=== PATIENT | male | born 1955 | race Caucasian/White ===

== ENCOUNTER 2024-06-22 09:14 | Emergency (ER) | payer MEDICARE, SELFPAY ==
--- NOTE | 2024-06-22 09:17 | XR_ITS ---
PROCEDURE INFORMATION: Exam: XR Left Wrist Exam date and time: 06/22/2024 9:17 AM Age: 68 years old Clinical indication: Injury or trauma; Fall; Blunt trauma (contusions or hematomas); Wrist; Left; Additional info: Fall yesterday, swelling and limited range of motion TECHNIQUE: Imaging protocol: Radiologic exam of the left wrist. Views: 3 or more views. COMPARISON: No relevant prior studies available. FINDINGS: Bones/joints: Radiocarpal relationship is maintained. There has an acute nondisplaced fracture of the distal metaphysis of the radius. Soft tissues: There is soft tissue swelling. IMPRESSION: Acute nondisplaced fracture of the distal metaphysis of the left radius.
[2024-06-22 09:55] VITALS: BP 150/90; PULSE 83; RESP 19; TEMP 36.8; O2SAT 98; BMI 24.0
--- NOTE | 2024-06-22 10:15 | ED_ITS ---
Discharge Plan Prescriptions Prescriptions: No Action polyethylene glycol 3350 [Miralax] 17 GM Powd.Pack 4 g PO DAILY iron, carbonyl [Iron Chews] 15 MG Tab.Chew 45 mg PO DAILY dextromethorphan-guaifenesin [Mucinex DM] 1 EACH Tab.Er.12h 0.5 tab PO BID montelukast 10 MG Tablet 10 mg PO PM ibuprofen-diphenhydramine cit [Advil PM] 1 EACH Tablet 0.5 ea PO HS omeprazole 20 MG Tablet.Dr 20 mg PO DAILY [id number] [Mens Multivitamin High Potency] 1 EACH Tablet 1 ea PO DAILY ascorbic acid (vitamin C) 500 MG Capsule 500 mg PO BID piau-cjw-obi-aen-vwup-pnwz-pec [Fiber 6] 1,000 MG Tablet 1,000 mg PO BID Referrals Follow up/Referrals: Praveen Olivo MD [Primary Care Provider] - See instructions Activity Restrictions/Add. Instructions Additional Instructions/Restrictions: rest Ice with cold pack for 20 minutes remove may repeat for comfort every hour splint for support and swelling.Be sure not too tight but not to lose either Elevate with arm above your heart as much as possible to help reduce swelling and therefore pain Ibuprofen every 6 hours as needed for pain or inflammation. Tylenol every 4 hours as needed Follow-up immediately if new or worsening symptoms or no noticeable improvement over the next 3-5 days. call ortho on Sunday for an appointment Dr. Olguin [phone] [facility] orthopedics [phone] Clinical Impressions Clinical Impression: Closed left radial fracture Instructions Patient Instructions: DI for Forearm Fracture Print Language Print Language: Micronesian Discharge ED Provider: Mandy ([facility])Kiersten [facility] [place] General Stated complaint: a/o 12/8, L wrist pain Mode of Arrival: Ambulatory Source of Information: Patient Limitations: No Limitations Time Seen by Provider: 06/22/24 10:15 Description of Symptoms (Recalled from Triage Doc. by RN): YURIY C/O LEFT WRIST INJURY AFTER FALLING YESTERDAY HEENT Symptoms (Recalled from RN notes): No Resp Symptoms (Recalled from RN notes): No Skin Symptoms (Recalled from RN notes): No MS Symptoms (Recalled from RN notes): Yes Functional Status (Recalled from RN notes): WNL History of Present Illness Provider Complaint: 68-year-old male presents for left wrist pain after falling yesterday. Related Data Home Medications ?Medication ?Instructions ?Recorded ?Confirmed ascorbic acid (vitamin C) 500 mg 500 mg PO BID Supplement 09/09/18 09/16/18 capsule pqqa-ziz-ckmzo-wkdesvwgr-cvrtwrii-amfa-pectin 1,000 mg PO BID Supplement 09/09/18 09/16/18 1,000 mg tablet (Fiber 6) dextromethorphan-guaifenesin ER 60 0.5 tab PO BID Cough/cold 09/09/18 09/16/18 mg-1,200 mg tab,extend release,12hr (Mucinex DM) ibuprofen-diphenhydramine citrate 0.5 ea PO HS sleep 09/09/18 09/16/18 200 mg-38 mg tablet (Advil PM) iron, carbonyl 15 mg chewable 45 mg PO DAILY Supplement 09/09/18 09/16/18 tablet (Iron Chews) montelukast 10 mg tablet 10 mg PO PM Breathing problems 09/09/18 09/16/18 jzemjznc-fcp-ikyfc 200 mcg-lycop 1 ea PO DAILY Supplement 09/09/18 09/16/18 175 mcg-lutei 250 mcg-herb 178 tablet (Mens Multivitamin High Potency) omeprazole 20 mg tablet,delayed 20 mg PO DAILY stomach 09/09/18 09/16/18 release polyethylene glycol 3350 17 gram 4 g PO DAILY Supplement 09/09/18 09/16/18 oral powder packet (Miralax) Allergies Allergy/AdvReac Type Severity Reaction Status Date / Time codeine Allergy Unknown Verified 06/22/24 10:06 allergy reaction hydrocodone Allergy Unknown Verified 06/22/24 10:06 allergy reaction horse serum Allergy Unknown Uncoded 06/22/24 10:06 allergy reaction Worker's Comp Is this a Worker's Comp case?: No [facility] Disclaimer: The information contained in this section may have been updated after the patient was seen, as this information can be updated by other users. Social History , [employer]) Smoking Status: Never smoker alcohol intake: never current occupational status: retired Travel in the last 8 weeks: None caffeine: No ROS Obtained: Yes Systems reviewed as appropriate & no additional complaints except as documented Physical Exam General General appearance: alert and in no apparent distress ENT ENT exam: Present normal exam Neck Neck exam: Present normal inspection and full ROM Chest Chest inspection: Present normal inspection Respiratory Respiratory exam: Present normal lung sounds bilaterally Cardiovascular Cardiovascular exam: Present regular rate and normal rhythm Expanded Upper Extremity Exam Left: Forearm/Wrist exam: Present tenderness, swelling and ecchymosis L/R Arms Top View: 2 1. Tenderness, bruising, swelling Neurological Exam Neurological exam: Present alert, oriented X3 and CN II-XII intact Skin Skin exam: Present warm and intact Lymphatic Lymphatic Findings: no adenopathy Medical Decision Making Medical Records Medical records reviewed: Yes I reviewed the patient's medical records. Screening: Per USPSTF and CDC recommendations, given the prevalence of disease in our region, it is our hospital?s policy to screen for HIV and viral Hepatitis for all patients aged 18 and over and those with ongoing risk factors. Douglas Inquiry Pt receiving controlled substance: No Douglas was queried for this patient: No Vital Signs: 06/22/24 09:55 Temperature 98.3 F Temperature Source Oral Pulse Rate [Left Brachial] 83 Respiratory Rate 19 Blood Pressure [Left Arm] 150/90 H Blood Pressure Mean [Left Arm] 110 Blood Pressure Source [Left Arm] Automatic Cuff Blood Pressure Position [Left Arm] Sitting 02 Sat by Pulse Oximetry 98 Oxygen Delivery Method Room Air Orders (Tests/Meds): ORDERS Category Date Time Status XR wrist LT min 3V Stat Exams 06/22/24 09:17 Completed Radiology Data #1: Image Reviewed: Yes I reviewed the patient's radiology results and Yes I have reviewed radiologist's interpretation Preliminary Findings: Abnormal
[2024-06-22 10:32] VITALS: BP 150/90; PULSE 83; RESP 19; TEMP 36.8; O2SAT 98
== END 2024-06-22 10:41 | disposition home or self-care (01) ==
PROVIDERS: Emergency Provider Nurse Practitioner Family; PCP Family Medicine
DX: S52.502A Unspecified fracture of the lower end of left radius, initial encounter for closed fracture (principal); W19.XXXA Unspecified fall, initial encounter
CPT/HCPCS: 73110; 99213; G0381